=== PATIENT | male | born 1995 | race Caucasian/White ===

== ENCOUNTER 2017-02-27 20:02 | Emergency (ER) | payer OTHER ==
[~2017-02-27] VITALS: Ht 175.3 cm; Wt 127.0 kg
[~2017-02-27 20:02] MED LIST: RISP2 PO
[2017-02-27 20:11] VITALS: BP 121/72
== END 2017-02-27 22:01 | disposition left against medical advice (07) ==
LOC: EMS 20:04
DX: Z53.21 Procedure and treatment not carried out due to patient leaving prior to being seen by health care provider (principal)

== ENCOUNTER 2018-02-01 17:33 | Emergency (ER) | payer OTHER | END 2018-02-01 18:08 | disposition left against medical advice (07) | LOC: EMS 17:37 | DX: Z53.21 Procedure and treatment not carried out due to patient leaving prior to being seen by health care provider (principal) ==

== ENCOUNTER 2018-02-02 01:14 | Emergency (ER) | payer SELFPAY ==
[~2018-02-02] VITALS: Ht 175.3 cm; Wt 113.6 kg
[2018-02-02 01:15] VITALS: BP 149/38
[2018-02-02 02:32] LABS: AMPHET/METH SCREEN,URINE NEGATIVE (NEGATIVE); BARBITURATE SCREEN, URINE NEGATIVE (NEGATIVE); BENZODIAZEPINES SCREEN,URINE NEGATIVE (NEGATIVE); CANNABINOID SCREEN,URINE NEGATIVE (NEGATIVE); COCAINE SCREEN,URINE NEGATIVE (NEGATIVE); METHADONE SCREEN, URINE NEGATIVE (NEGATIVE); OPIATE SCREEN,URINE NEGATIVE (NEGATIVE)
[2018-02-02 02:33] LABS: PHENCYCLIDINE SCREEN,URINE NEGATIVE (NEGATIVE)
== END 2018-02-02 05:44 | disposition home or self-care (01) ==
LOC: EMS 01:16
DX: F32.9 Major depressive disorder, single episode, unspecified (principal); F20.9 Schizophrenia, unspecified; F12.90 Cannabis use, unspecified, uncomplicated; F17.210 Nicotine dependence, cigarettes, uncomplicated
CPT/HCPCS: 99284

== ENCOUNTER 2020-05-27 07:57 | Inpatient (IN) | payer MEDICAID, OTHER ==
[~2020-05-27] VITALS: Ht 175.3 cm; Wt 137.7 kg
[2020-05-27 08:27] LABS: AMPHET/METH SCREEN,URINE NEGATIVE (NEGATIVE); BARBITURATE SCREEN, URINE NEGATIVE (NEGATIVE); BENZODIAZEPINES SCREEN,URINE NEGATIVE (NEGATIVE); CANNABINOID SCREEN,URINE NEGATIVE (NEGATIVE); COCAINE SCREEN,URINE NEGATIVE (NEGATIVE); METHADONE SCREEN, URINE NEGATIVE (NEGATIVE); OPIATE SCREEN,URINE NEGATIVE (NEGATIVE)
[2020-05-27 08:30] LABS: PHENCYCLIDINE SCREEN,URINE NEGATIVE (NEGATIVE)
[2020-05-27] MEDS ORDERED: ZOLPIDEM TARTRATE 10 MG TABLET PO PRN (12:45)
[2020-05-27 14:04] LABS: COVID AG,FIA SOURCE NASOPHARYNGEAL
[2020-05-27 17:09] VITALS: BP 157/100
[2020-05-27] MEDS ORDERED: INFLUENZA VIRUS VACCINE QVS 2020-21 (6MO+)/PF 60 MCG/0.5 ML SYRINGE IM ONE (17:15)
[2020-05-27] MEDS: HALOPERIDOL 5 MG TABLET PO PRN (17:36)
[2020-05-27] MEDS: LORazepam 2 MG TABLET PO PRN (17:36)
[2020-05-27] MEDS ORDERED: CloNIDine HCL 0.1 MG TABLET PO PRN (19:00)
[2020-05-28 01:02] VITALS: BP 138/89
[2020-05-28] MEDS ORDERED: NICOTINE 14 MG/24 HOUR PATCH TD PRN (06:00)
[2020-05-28] MEDS ORDERED: GuaiFENesin/D-METHORPHAN [SUGAR-FREE] 200-20MG/10 ML SYRUP UDCUP PO PRN (06:00)
[2020-05-28] MEDS ORDERED: IBUPROFEN 400 MG TABLET PO PRN (06:00)
[2020-05-28] MEDS ORDERED: LOPERAMIDE HCL 2 MG CAPSULE PO PRN (06:00)
[2020-05-28] MEDS ORDERED: MAGNESIUM HYDROXIDE SUSPENSION 30 ML UDCUP PO PRN (06:00)
[2020-05-28] MEDS ORDERED: MAG HYDROX/AL HYDROX/SIMETH ES 30 ML SUSPENSION UDCUP PO PRN (06:00)
[2020-05-28] MEDS ORDERED: DOCUSATE SODIUM 100 MG CAPSULE PO PRN (06:00)
[2020-05-28] MEDS ORDERED: ONDANSETRON HCL 4 MG TABLET PO PRN (06:00)
[2020-05-28] MEDS ORDERED: CloNIDine HCL 0.1 MG TABLET PO PRN (06:00)
[2020-05-28] MEDS ORDERED: ACETAMINOPHEN 325 MG TABLET PO PRN (06:00)
[2020-05-28] MEDS ORDERED: PETROLATUM,WHITE 28 GM JELLY TP PRN (06:00)
[2020-05-28] MEDS ORDERED: ALBUTEROL SULFATE HFA 90 MCG/PUFF 8 GM INHALER IH PRN (06:00)
[2020-05-28 08:08] VITALS: BP 130/76
[2020-05-28] MEDS: HALOPERIDOL 5 MG TABLET PO PRN (08:22)
[2020-05-28] MEDS: LORazepam 2 MG TABLET PO PRN ×2 (08:22→16:27)
[2020-05-28 08:45] LABS: BASOPHILS % (AUTO) 0.4 % (0.0-2.0); EOSINOPHILS % (AUTO) 3.3 % (1.0-6.0); HEMOGLOBIN 12.7 g/dL (13.5-17.5); LYMPHOCYTES # (AUTO) 1.9 K/uL (1.0-4.8); LYMPHOCYTES % (AUTO) 15.1 % (22.0-44.0); MEAN CORPUSCULAR HEMOGLOBIN 27.3 pg (26.0-34.0); MEAN CORPUSCULAR HGB CONC 33.4 G/dL (31.0-37.0); MEAN CORPUSCULAR VOLUME 82 fL (80-100); MONOCYTES # (AUTO) 0.9 K/uL (0.1-1.0); MONOCYTES % (AUTO) 7.6 % (2.0-9.0); NEUTROPHILS # (AUTO) 9.1 K/uL (1.8-7.7); NEUTROPHILS % (AUTO) 73.6 % (40.0-70.0); PLATELET COUNT (AUTO) 311 K/uL (150-450); RED BLOOD CELL COUNT(AUTO) 4.63 MIL/uL (4.50-5.90); RED CELL DISTRIBUTION WIDTH 13.6 % (11.5-14.5)
[2020-05-28 09:05] LABS: ALANINE AMINOTRANSFERASE 41 U/L (12-78); ALBUMIN 2.9 g/dL (3.4-5.0); ALKALINE PHOSPHATASE 68 U/L (46-116); ANION GAP 7 mmol/L (8-16); ASPARTATE AMINOTRANSFERASE 35 U/L (15-37); BILIRUBIN,TOTAL 0.3 mg/dL (0.1-1.0); CALCIUM, TOTAL 8.5 mg/dL (8.8-10.5); CARBON DIOXIDE 31 mmol/L (22-29); CHLORIDE 103 mmol/L (98-107); CREATININE 0.88 mg/dL (0.60-1.30); GLOMERULAR FILTR. RATE CALC > 60 mL/min (>60); GLUCOSE,RANDOM 88 mg/dL (70-110); POTASSIUM 3.9 mmol/L (3.5-5.1); SODIUM SERUM 141 mmol/L (136-145); TOTAL PROTEIN, SERUM 6.3 g/dL (6.4-8.2); UREA NITROGEN, BLOOD 10 mg/dL (7-18)
[2020-05-28] MEDS: CEPHALEXIN MONOHYDRATE 500 MG CAPSULE PO SCH ×4 (10:00→21:30)
[2020-05-28] MEDS: SULFAMETHOX/TRIMETH DS 800-160 MG/TABLET PO SCH ×2 (10:00→16:27)
[2020-05-28] MEDS: OLANZapine 5 MG TABLET PO SCH (16:27)
[2020-05-28 16:29] VITALS: BP 136/71
[2020-05-29 01:41] VITALS: BP 121/70
[2020-05-29 08:16] VITALS: BP 117/71
[2020-05-29] MEDS: SULFAMETHOX/TRIMETH DS 800-160 MG/TABLET PO SCH ×2 (08:26→17:01)
[2020-05-29] MEDS: OLANZapine 5 MG TABLET PO SCH ×2 (08:26→17:01)
[2020-05-29] MEDS: HALOPERIDOL 5 MG TABLET PO PRN (08:26)
[2020-05-29] MEDS: CEPHALEXIN MONOHYDRATE 500 MG CAPSULE PO SCH ×4 (08:26→21:08)
[2020-05-29] MEDS: LORazepam 2 MG TABLET PO PRN ×2 (08:26→16:06)
[2020-05-29 12:28] VITALS: BP 120/73
[2020-05-29 16:10] VITALS: BP 136/88
[2020-05-30 00:06] VITALS: BP 120/80
[2020-05-30] MEDS: LORazepam 2 MG TABLET PO PRN (00:50)
[2020-05-30 08:15] VITALS: BP 127/73
[2020-05-30] MEDS: CEPHALEXIN MONOHYDRATE 500 MG CAPSULE PO SCH (08:39)
[2020-05-30] MEDS: OLANZapine 5 MG TABLET PO SCH (08:40)
[2020-05-30] MEDS: SULFAMETHOX/TRIMETH DS 800-160 MG/TABLET PO SCH (08:40)
[2020-05-30] MEDS ORDERED: OLAN5TAB2 PO (11:25)
[2020-05-30] MEDS ORDERED: CEPH-582 PO (11:26)
[2020-05-30] MEDS ORDERED: BACTDSB PO (11:27)
== END 2020-05-30 12:15 | disposition home or self-care (01) | DRG 750 ==
LOC: EMS 07:59 → B3A 12:40
PROVIDERS: ADMIT Psychiatry & Neurology Psychiatry; ATTEND Psychiatry & Neurology Psychiatry
DX: F25.9 Schizoaffective disorder, unspecified (principal); Z59.0 Homelessness; Z91.19 Patient's noncompliance with other medical treatment and regimen; F32.9 Major depressive disorder, single episode, unspecified; F17.210 Nicotine dependence, cigarettes, uncomplicated; F12.90 Cannabis use, unspecified, uncomplicated; D72.829 Elevated white blood cell count, unspecified; D64.9 Anemia, unspecified; F19.10 Other psychoactive substance abuse, uncomplicated; R45.851 Suicidal ideations; R45.86 Emotional lability; Z20.828 Contact with and (suspected) exposure to other viral communicable diseases; Z28.21 Immunization not carried out because of patient refusal
CPT/HCPCS: 87426; G0480

== ENCOUNTER 2021-02-13 04:59 | Inpatient (IN) | payer MEDICAID, OTHER ==
[~2021-02-13] VITALS: Ht 175.3 cm; Wt 118.3 kg
[~2021-02-13 04:59] MED LIST changes: +BACTDSB PO; +CEPH-582 PO; +OLAN5TAB52 PO; -RISP2 PO
[2021-02-13 06:22] LABS: BASOPHILS % (AUTO) 0.6 % (0.0-2.0); EOSINOPHILS % (AUTO) 1.3 % (1.0-6.0); HEMOGLOBIN 13.6 g/dL (13.5-17.5); LYMPHOCYTES # (AUTO) 2.2 K/uL (1.0-4.8); LYMPHOCYTES % (AUTO) 16.1 % (22.0-44.0); MEAN CORPUSCULAR HEMOGLOBIN 27.4 pg (26.0-34.0); MEAN CORPUSCULAR HGB CONC 33.3 G/dL (31.0-37.0); MEAN CORPUSCULAR VOLUME 82 fL (80-100); MONOCYTES # (AUTO) 1.1 K/uL (0.1-1.0); MONOCYTES % (AUTO) 8.1 % (2.0-9.0); NEUTROPHILS % (AUTO) 73.9 % (40.0-70.0); PLATELET COUNT (AUTO) 372 K/uL (150-450); RED BLOOD CELL COUNT(AUTO) 4.98 MIL/uL (4.50-5.90); RED CELL DISTRIBUTION WIDTH 14.2 % (11.5-14.5)
[2021-02-13 06:40] LABS: ANION GAP 7 mmol/L (8-16); CALCIUM, TOTAL 8.8 mg/dL (8.8-10.5); CARBON DIOXIDE 30 mmol/L (22-29); CHLORIDE 101 mmol/L (98-107); CREATININE 0.95 mg/dL (0.60-1.30); GLOMERULAR FILTR. RATE CALC > 60 mL/min (>60); GLUCOSE,RANDOM 92 mg/dL (70-110); POTASSIUM 3.6 mmol/L (3.5-5.1); SODIUM SERUM 138 mmol/L (136-145); UREA NITROGEN, BLOOD 15 mg/dL (7-18)
[2021-02-13 06:45] LABS: COVID AG,FIA SOURCE NASOPHARYNGEAL
[2021-02-13 06:46] LABS: ALANINE AMINOTRANSFERASE 37 U/L (12-78); ALBUMIN 3.9 g/dL (3.4-5.0); ALKALINE PHOSPHATASE 96 U/L (46-116); ASPARTATE AMINOTRANSFERASE 18 U/L (15-37); BILIRUBIN,TOTAL 0.2 mg/dL (0.1-1.0); TOTAL PROTEIN, SERUM 7.9 g/dL (6.4-8.2)
[2021-02-13] MEDS: OLANZapine 5 MG TABLET PO ONE ×2 (09:13→09:15)
[2021-02-13] MEDS ORDERED: ZOLPIDEM TARTRATE 10 MG TABLET PO PRN (10:00)
[2021-02-13 16:15] VITALS: BP 118/76
[2021-02-13] MEDS ORDERED: PETROLATUM,WHITE 28 GM JELLY TP PRN (21:00)
[2021-02-13] MEDS ORDERED: ALBUTEROL SULFATE HFA 90 MCG/PUFF 8 GM INHALER IH PRN (21:00)
[2021-02-13] MEDS ORDERED: BACITRACIN 28 GM OINTMENT TP PRN (21:00)
[2021-02-13] MEDS ORDERED: CloNIDine HCL 0.1 MG TABLET PO PRN (21:00)
[2021-02-13] MEDS ORDERED: MAG HYDROX/AL HYDROX/SIMETH ES 30 ML SUSPENSION UDCUP PO PRN (21:00)
[2021-02-13] MEDS ORDERED: BENZOCAINE/MENTHOL LOZENGE PO PRN (21:00)
[2021-02-13] MEDS ORDERED: IBUPROFEN 600 MG TABLET PO PRN (21:00)
[2021-02-13] MEDS ORDERED: MAGNESIUM HYDROXIDE SUSPENSION 30 ML UDCUP PO PRN (21:00)
[2021-02-13] MEDS ORDERED: LOPERAMIDE HCL 2 MG CAPSULE PO PRN (21:00)
[2021-02-13] MEDS ORDERED: OMEPRAZOLE 20 MG CAPSULE PO PRN (21:00)
[2021-02-13] MEDS ORDERED: ONDANSETRON HCL 4 MG TABLET PO PRN (21:00)
[2021-02-13] MEDS ORDERED: DOCUSATE SODIUM 100 MG CAPSULE PO PRN (21:00)
[2021-02-13] MEDS ORDERED: ACETAMINOPHEN 325 MG TABLET PO PRN (21:00)
[2021-02-14 00:22] VITALS: BP 111/67
[2021-02-14] MEDS: LORazepam 2 MG TABLET PO PRN ×2 (00:54→16:51)
[2021-02-14 14:28] VITALS: BP 117/66
[2021-02-14 16:07] VITALS: BP 123/77
[2021-02-14] MEDS: HALOPERIDOL 5 MG TABLET PO PRN (16:51)
[2021-02-15 00:09] VITALS: BP 122/74
[2021-02-15 08:31] VITALS: BP 110/65
[2021-02-15 16:07] VITALS: BP 120/79
[2021-02-15] MEDS: OLANZapine 10 MG TABLET PO SCH (20:47)
[2021-02-16 06:20] VITALS: BP 110/72
[2021-02-16 08:01] VITALS: BP 118/84
[2021-02-16] MEDS: LORazepam 2 MG TABLET PO PRN ×2 (09:50→17:06)
[2021-02-16] MEDS: HALOPERIDOL 5 MG TABLET PO PRN ×2 (09:50→17:06)
[2021-02-16 16:08] VITALS: BP 111/65
[2021-02-16] MEDS: OLANZapine 10 MG TABLET PO SCH (20:21)
[2021-02-17 02:08] VITALS: BP 115/74
[2021-02-17] MEDS: LORazepam 2 MG TABLET PO PRN (08:48)
[2021-02-17] MEDS: HALOPERIDOL 5 MG TABLET PO PRN (08:48)
[2021-02-17 12:03] VITALS: BP 109/71
[2021-02-17] MEDS ORDERED: OLAN10TA74 PO (15:14)
== END 2021-02-17 16:40 | disposition home or self-care (01) | DRG 750 ==
LOC: EMS 05:00 → B3A 11:33
PROVIDERS: ADMIT Psychiatry & Neurology Psychiatry; ATTEND Psychiatry & Neurology Psychiatry
DX: F25.9 Schizoaffective disorder, unspecified (principal); R45.851 Suicidal ideations; D72.829 Elevated white blood cell count, unspecified; E66.9 Obesity, unspecified; F12.10 Cannabis abuse, uncomplicated; F41.9 Anxiety disorder, unspecified; G47.00 Insomnia, unspecified; F10.10 Alcohol abuse, uncomplicated; F17.210 Nicotine dependence, cigarettes, uncomplicated; Z20.822 Contact with and (suspected) exposure to COVID-19
CPT/HCPCS: 80053; 85025; 99285; G0480

== ENCOUNTER 2024-09-14 21:22 | Inpatient (IN) | payer MEDICAID ==
[~2024-09-14] VITALS: Ht 175.3 cm; Wt 142.4 kg
[~2024-09-14 21:22] MED LIST changes: -BACTDSB PO; -CEPH-582 PO; +OLAN10TA74 PO; -OLAN5TAB52 PO
[2024-09-14] MEDS ORDERED: ZOLPIDEM TARTRATE 10 MG TABLET PO PRN (23:15)
[2024-09-14] MEDS ORDERED: LORazepam 2 MG TABLET PO PRN (23:15)
[2024-09-14] MEDS ORDERED: HALOPERIDOL 5 MG TABLET PO PRN (23:15)
[2024-09-15] MEDS ORDERED: INFLUENZA VIRUS VACCINE TVS (6MO+) 2024-25/PF 45 MCG/0.5 ML SYRINGE IM. ONE (01:15)
[2024-09-15] MEDS ORDERED: PNEUMOCOCCAL VACCINE POLYVALENT 0.5 ML SYRINGE [PPSV23] IM. ONE (01:15)
[2024-09-15 01:16] LABS: GLUCOMETER DEV NAME(LOC) POC.BV; POC SARS-COV2 AG, FIA NEGATIVE (NEGATIVE)
[2024-09-15 03:59] VITALS: BP 125/59; PULSE 98; RESP 16; TEMP 98; O2SAT 98
[2024-09-15 04:13] VITALS: BP 125/59; PULSE 98; TEMP 98
[2024-09-15] MEDS ORDERED: ALBUTEROL SULFATE HFA 90 MCG/PUFF 8 GM INHALER IH PRN (06:45)
[2024-09-15] MEDS ORDERED: BENZOCAINE/MENTHOL LOZENGE PO PRN (06:45)
[2024-09-15] MEDS ORDERED: CloNIDine HCL 0.1 MG TABLET PO PRN (06:45)
[2024-09-15] MEDS ORDERED: OMEPRAZOLE 20 MG CAPSULE PO PRN (06:45)
[2024-09-15] MEDS ORDERED: ACETAMINOPHEN 325 MG TABLET PO PRN (06:45)
[2024-09-15] MEDS ORDERED: ONDANSETRON 4 MG TABLET PO PRN (06:45)
[2024-09-15] MEDS ORDERED: BACITRACIN 28 GM OINTMENT TP PRN (06:45)
[2024-09-15] MEDS ORDERED: LOPERAMIDE HCL 2 MG CAPSULE PO PRN (06:45)
[2024-09-15] MEDS ORDERED: DOCUSATE SODIUM 100 MG CAPSULE PO PRN (06:45)
[2024-09-15] MEDS ORDERED: PETROLATUM,WHITE 28 GM JELLY TP PRN (06:45)
[2024-09-15] MEDS ORDERED: MAGNESIUM HYDROXIDE SUSPENSION 30 ML UDCUP PO PRN (06:45)
[2024-09-15] MEDS ORDERED: IBUPROFEN 600 MG TABLET PO PRN (06:45)
[2024-09-15] MEDS ORDERED: MAG HYDROX/ALUMINUM HYD/SIMETH ES 30 ML SUSPENSION UDCUP PO PRN (06:45)
[2024-09-15 08:13] VITALS: BP 100/60; PULSE 81; RESP 18; TEMP 97.7; O2SAT 97
[2024-09-15 08:41] LABS: BASOPHILS % (AUTO) 0.6 % (0.0-2.0); EOSINOPHILS % (AUTO) 3.4 % (1.0-6.0); HEMATOCRIT 40.6 % (41-53); HEMOGLOBIN 13.4 g/dL (13.5-17.5); LYMPHOCYTES # (AUTO) 2.2 K/uL (1.0-4.8); LYMPHOCYTES % (AUTO) 21.9 % (22.0-44.0); MEAN CORPUSCULAR HEMOGLOBIN 27.2 pg (26.0-34.0); MEAN CORPUSCULAR HGB CONC 33.1 G/dL (31.0-37.0); MEAN CORPUSCULAR VOLUME 82 fL (80-100); MONOCYTES # (AUTO) 0.7 K/uL (0.1-1.0); MONOCYTES % (AUTO) 6.6 % (2.0-9.0); NEUTROPHILS # (AUTO) 6.8 K/uL (1.8-7.7); NEUTROPHILS % (AUTO) 67.5 % (40.0-70.0); PLATELET COUNT (AUTO) 340 K/uL (150-450); RED BLOOD CELL COUNT(AUTO) 4.93 MIL/uL (4.50-5.90); RED CELL DISTRIBUTION WIDTH 13.4 % (11.5-14.5); WHITE BLOOD COUNT (AUTO) 10.1 K/uL (4.5-11.0)
[2024-09-15 08:50] LABS: HEMOGLOBIN A1C 5.5 % (3.8-5.6)
[2024-09-15 09:06] LABS: ALANINE AMINOTRANSFERASE 24 U/L (12-78); ALBUMIN 3.2 g/dL (3.4-5.0); ALKALINE PHOSPHATASE 90 U/L (46-116); ANION GAP 9 mmol/L (8-16); ASPARTATE AMINOTRANSFERASE 14 U/L (15-37); BILIRUBIN,TOTAL 0.2 mg/dL (0.1-1.0); CALCIUM, TOTAL 8.9 mg/dL (8.8-10.5); CARBON DIOXIDE 27 mmol/L (22-29); CHLORIDE 105 mmol/L (98-107); CHOL/HDL RATIO 2.5 (4.2-7.3); CHOLESTEROL 139 mg/dL (131-200); CREATININE 0.97 mg/dL (0.60-1.30); FREE T4 (FREE THYROXINE) 1.06 ng/dL (0.76-1.46); GLOMERULAR FILTR. RATE CALC > 60 mL/min (>60); GLUCOSE,RANDOM 86 mg/dL (70-110); HDL CHOLESTEROL 55 mg/dL (40-60); LDL CHOL (CALC.) 75 mg/dL (0-130); POTASSIUM 4.3 mmol/L (3.5-5.1); SODIUM SERUM 141 mmol/L (136-145); THYROID STIMULATING HORMONE 3.09 uIU/mL (0.36-3.74); TOTAL PROTEIN, SERUM 7.3 g/dL (6.4-8.2); TRIGLYCERIDES 47 mg/dL (15-150); UREA NITROGEN, BLOOD 12 mg/dL (7-18)
[2024-09-15] MEDS ORDERED: HydrOXYzine HCL 25 MG TABLET PO PRN (15:00)
[2024-09-15 20:00] VITALS: BP 110/62; PULSE 88; RESP 18; TEMP 97.4; O2SAT 97
[2024-09-16 08:04] VITALS: BP 115/60; PULSE 85; RESP 15; TEMP 97.7; O2SAT 97
[2024-09-16] MEDS: BuPROPion HCL XL 150 MG ER TABLET PO SCH (08:40)
[2024-09-16] MEDS: ARIPiprazole 15 MG TABLET PO SCH (08:40)
[2024-09-16] MEDS ORDERED: BuPROPion HCL 75 MG TABLET PO SCH (09:00)
[2024-09-16] MEDS ORDERED: BUPR-514 PO (14:46)
[2024-09-16] MEDS ORDERED: ARIP15TA27 PO (14:46)
[2024-09-17 08:49] LABS: APPEARANCE,URINE TURBID (CLEAR); BILIRUBIN,URINE NEGATIVE (NEGATIVE); COLOR,URINE LIGHT ORANGE (YELLOW); GLUCOSE, URINE (UA) NEGATIVE (NEGATIVE); KETONES,URINE NEGATIVE (NEGATIVE); LEUKOCYTE ESTERASE ,URINE NEGATIVE (NEGATIVE); NITRATE,URINE NEGATIVE (NEGATIVE); OCCULT BLOOD,URINE NEGATIVE (NEGATIVE); PROTEIN,URINE NEGATIVE (NEGATIVE); SPECIFIC GRAVITIY, URINE 1.025 (1.003-1.030); UROBILINOGEN,URINE <=1.0 mg/dL (<=1.0)
[2024-09-17 08:57] LABS: ALCOHOL, URINE DRUG SCREEN NEGATIVE (NEGATIVE); AMPHET/METH SCREEN,URINE NEGATIVE (NEGATIVE); BARBITURATE SCREEN, URINE NEGATIVE (NEGATIVE); BENZODIAZEPINES SCREEN,URINE NEGATIVE (NEGATIVE); CANNABINOID SCREEN,URINE NEGATIVE (NEGATIVE); COCAINE SCREEN,URINE NEGATIVE (NEGATIVE); METHADONE SCREEN, URINE NEGATIVE (NEGATIVE); OPIATE SCREEN,URINE NEGATIVE (NEGATIVE); PHENCYCLIDINE SCREEN,URINE NEGATIVE (NEGATIVE)
== END 2024-09-16 18:28 | disposition home or self-care (01) | DRG 750 ==
LOC: B3A 23:02
PROVIDERS: ADMIT Psychiatry & Neurology Psychiatry; ATTEND Psychiatry & Neurology Psychiatry
DX: F20.9 Schizophrenia, unspecified (principal); R45.850 Homicidal ideations; E66.9 Obesity, unspecified; F10.10 Alcohol abuse, uncomplicated; G47.00 Insomnia, unspecified; Z20.822 Contact with and (suspected) exposure to COVID-19; F41.9 Anxiety disorder, unspecified; F12.10 Cannabis abuse, uncomplicated; Z72.0 Tobacco use; Z68.42 Body mass index [BMI] 45.0-49.9, adult
CPT/HCPCS: 80053; 80061; 80307; 81003; 83036; 84439; 84443; 85025